=== PATIENT | male | born 1940 | race Caucasian/White ===

== ENCOUNTER 2021-03-24 10:31 | Outpatient (REF) | payer MEDICARE, SELFPAY ==
--- NOTE | ~2021-03-24 | US_ITS ---
EXAMINATION: US RETROPERITONEAL LIMITED (RENAL ONLY) CLINICAL INFORMATION: Hematuria. COMPARISON: None TECHNIQUE: Real-time imaging of the kidneys. FINDINGS: RIGHT KIDNEY: 10.7 x 5.8 x 4.7 cm (SAG x AP x TRV). The kidney is normal in size, contour, and echogenicity. Renal cortical thickness is normal. No calculi. No hydronephrosis. A ill-defined hypoechoic avascular lesion off the inferior right lower pole, measuring approximately 2.2 cm. LEFT KIDNEY: 13.0 x 4.5 x 4.9 cm (SAG x AP x TRV). The kidney is normal in size, contour, and echogenicity. Renal cortical thickness is normal. No hydronephrosis. Benign-appearing renal cysts measuring up to 4.3 cm, no imaging follow-up recommended. Nonobstructing 3 mm left renal stone. US/US renal BI IMPRESSION: A ill-defined hypoechoic avascular lesion off the inferior right lower pole, measuring approximately 2.2 cm favored to be artifactual however recommend contrast-enhanced CT abdomen to ensure this does not reflect a discrete renal lesion. Nonobstructing 3 mm left renal stone. Partially imaged liver appears echogenic suggestive of hepatic steatosis or underlying liver disease. This could be further characterized with a dedicated right upper quadrant ultrasound if clinically indicated.
== END 2021-03-24 10:32 | disposition home or self-care (01) ==
LOC: HO.US 10:31
PROVIDERS: Visit Provider Internal Medicine Nephrology
DX: R31.9 Hematuria, unspecified (principal)
CPT/HCPCS: 76775

== ENCOUNTER 2025-02-11 09:00 | Outpatient (AMB) | payer MEDICARE, SELFPAY ==
--- NOTE | 2025-02-11 09:04 | A.OFFVIS_ITS ---
Intake Visit Reasons: 6 month f/u Accompanied by: [employer] Allergies aspirin Allergy (Unknown, Verified 02/11/25 09:08) Unknown Medication List - Last Reconciled 02/11/25 by Veronica Ruby CNP atorvastatin 40 mg PO DAILY bumetanide 2 mg PO BID carbidopa-levodopa 25-100 mg (Sinemet) 2 tabs PO TID 90 days citalopram 20 mg PO DAILY cyclobenzaprine 5 mg PO BEDTIME finasteride 5 mg PO DAILY gabapentin 600 mg PO TID hydralazine 50 mg PO TID magnesium oxide 400 mg PO DAILY metoprolol succinate ER 50 mg PO DAILY mirtazapine 45 mg PO BEDTIME pantoprazole 40 mg PO QAM potassium chloride ER 20 mEq PO DAILY semaglutide (Ozempic) 1 mg subcut QWEEK HPI Comments Details: 84-year-old man with DM, HTN, arthritis, gout, depression, neuropathy, and parkinsonism. He was doing okay. He had [employer] for 29 hours/week. Tremors were okay with medication. No functional impairment. No difficulty eating, drinking, or swallowing. He was using walker most of the time. He had a fall in 11/2024 in parking lot and was seen at [facility], no injuries reported. Sleep was okay. [facility] Medical History (Updated 02/11/25 @ 09:08 by Veronica Ruby CNP) Gout Depression GERD (gastroesophageal reflux disease) Arthritis Hyperlipidemia Hypertension Diabetes Mild cognitive impairment Peripheral neuropathy Multifactorial gait disorder Parkinsonism Review of Systems Const Denies chills, Denies daytime sleepiness, Denies difficulty sleeping, Denies fatigue, Denies fever(s), Denies frequent falls, Denies headache(s), Denies increased appetite, Denies poor appetite, Denies snoring, Denies weakness, Denies weight gain and Denies weight loss Eyes Denies loss of vision ENT Denies vertigo, Denies dizziness and Denies headache(s) Card Denies chest pain at rest, Denies chest pain with activity, Denies syncope, Denies leg edema and Denies palpitations Resp Denies snoring GI Denies constipation, Denies heartburn, Denies diarrhea and Denies nausea Denies urinary frequency, Denies urinary incontinence and Denies urinary urgency Musc Reports abnormal gait (balance difficulty), Denies numbness and Denies tingling Skin/Breast Denies dry skin and Denies rash Neuro Reports abnormal gait (balance difficulty), Denies vertigo, Denies dizziness, Denies syncope, Denies frequent falls, Denies headache(s), Reports lack of coordination, Denies loss of vision, Reports memory loss, Denies numbness, Denies restless legs, Denies seizure-like activity, Denies tingling, Denies paresthesias, Reports tremor(s) and Denies weakness Psych Denies anxiety, Denies depression, Denies auditory hallucinations, Reports memory loss, Denies visual hallucinations and Denies suicidal ideation Endo Denies fatigue and Denies palpitations Physical Exam Const Other: General Appearance:? normal, in no acute distress. Skin:? no rashes, no significant birthmarks. Heart:? S1, S2 normal, no murmurs. Lungs:? clear anteriorly and posteriorly. Extremities:? no edema. Psych:? alert, oriented, cognitive function intact, cooperative with exam. Neuro Other: Mental Status:?Normal attention, orientation, and affect.? Cranial Nerves:?Pupils are equal, round and reactive to light. External occular muscles are intact. Visual villa are full. Face is symmetrical. Facial sensations are normal. Tongue is midline. Palate elevates symmetrically. S houlder shrugging is normal. Hearing to bedside conversation is normal. Sensory Exam:?....? Coordination:?No ataxia,?no titubation.? Gait Exam: Walking with walker. Cerebellar Signs:?[id number] with mild tremor. Extrapyramidal System:?No tremor, rigidity with normal facial expressions.? Pronator Drift:?Not present.? Involuntary Movements:?Mild hand tremor, R > L, and head tremor. Speech:?Normal.? Results Reviewed Results Reviewed: NCV/EMG LE 01/09/17 Bilateral chronic lower lumbar radiculopathy. 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 MRI brain WO at [facility] in Nov 2016: mild diffuse atrophy and mild MVD Assessment & Plan Assessment & Plan (1) Parkinsonism: Code(s): G20 - Parkinson's disease Category: Medical Qualifiers: Parkinsonism type: unspecified Qualified Code(s): G20.C - Parkinsonism, unspecified Plan: Continue carbidopa-levodopa 25-100mg 2 tablets three times a day (7am, 11am, 3pm). Continue to use walker. Follow up in 6 months or sooner as needed. (2) Peripheral neuropathy: Code(s): G62.9 - Polyneuropathy, unspecified Category: Medical Qualifiers: Peripheral neuropathy type: polyneuropathy, unspecified Qualified Code(s): G62.9 - Polyneuropathy, unspecified Plan . Medications: Refilled carbidopa-levodopa 25-100 mg (Sinemet) at 7am, 11am, and 3pm 2 tabs PO TID 540 tabs 1RF 90 days Coding Level of Care Code Est Pt Level 4 (85856) Diagnoses Parkinsonism, unspecified Parkinsonism type G20.C Parkinsonism type: unspecified Peripheral polyneuropathy G62.9 Peripheral neuropathy type: polyneuropathy, unspecified
--- OUTSIDE RECORDS SUMMARY | 2025-02-11 18:41 | XMS_ITS | Data Portability ---
Author Organization [facility] [employer] Address [address] [place] [address] Assessment Encounter Date Assessment Date Assessment LastModified by Organization Details LastModified Time 04/26/2022 04/26/2022 Participated in a shared telephonic visit with patient with 24 hours of fever and URI symptoms. Tested positive today for COVID. Renal function is WNL. On Lipitor and willing to hold. Took it this AM so will start Paxlovid dose pack in AM. He will take Tylenol for fever and body aches. [email or web address] Not available 04/26/2022 15:49:40 Plan of Treatment Reminders Order Date Submit Date Provider Last Modified By Organization Details Last Modified Time Details Appointments None recorded. Lab None recorded. Referral None recorded. Procedures None recorded. Surgeries None recorded. Imaging None recorded. Medication Orders Paxlovid 300 mg (150 mg x 2)-100 mg tablets in a dose pack 2022 023 [facility] #[id number], [address] [place], [address], 3 15:47:43 Paxlovid 150 mg-100 mg tablets in a dose pack (Moderate Renal Dose) 2022 023 [facility] #[id number], [address] [place], [address], 3 14:45:41 Patient TargetsNo targets recorded. Patient InstructionsNo instructions recorded. Reason for Referral None Reported. Medical Equipment None Reported. Allergies Allergen ID Allergen Name Allergen Category Reaction Reaction Severity Criticality Documentation Date Start Date Code Code System Note Provider Name and Address Organization Details Recorded Time 6899 aspirin medicatio n Not available Not available Not available 01/23/2024 1191 RxNorm Not Available [facility] - production 10/29/202 4 03:33:21 Medications Name Sig Start Date Stop Date Status Note LastModified by Organization Details LastModified Time atorvastatin 40 mg tablet TOME KHADIJAH TABLETA TODOS LOS D active Not Available Not Available No t Available acetaminophe n 325 mg tablet TAKE 2 CAPSULES BY MOUTH EVERY 6 HOURS NEEDED (PAIN). active Not Available Not Available No t Available gabapentin 600 mg tablet TOME KHADIJAH TABLETA WANDER VECES AL D A active Not Available Not Available No t Available bumetanide 2 mg tablet TOME KHADIJAH TABLETA DOS VECES AL D A active Not Available Not Available No t Available metoprolol succinate ER 50 mg tablet,exten ded release 24 hr TOME KHADIJAH TABLETA TODOS LOS D active Not Available Not Available No t Available senna 8.6 mg tablet TAKE 1 TABLET BY MOUTH DAILY NEEDED active Not Available Not Available No t Available citalopram 20 mg tablet TOME KHADIJAH TABLETA TODOS LOS D active Not Available Not Available No t Available magnesium oxide 400 mg (241.3 mg magnesium) tablet TOME KHADIJAH TABLETA TODOS LOS D active Not Available Not Available No t Available terazosin 2 mg capsule TOME KHADIJAH C PSULA TODOS LOS D AL ACOSTARSE active Not Available Not Available No t Available meclizine 25 mg tablet TOME KHADIJAH TABLETA WANDER VECES AL D A CUANDO SEA NECESARIO PARA EL MAREO active Not Available Not Available No t Available amlodipine 10 mg tablet TOME KHADIJAH TABLETA TODOS LOS D active Not Available Not Available No t Available pantoprazole 40 mg tablet,delay ed release TOME KHADIJAH TABLETA TODOS LOS D active Not Available Not Available No t Available calcitriol 0.5 mcg capsule TAKE 2 CAPSULES ONCE A WEEK ON MONDAYS active Not Available Not Available N ot Available docusate sodium 100 mg capsule TOME KHADIJAH C PSULA DOS VECES AL D A CUANDO SEA NECESARIO PARA EL ESTRE IMIENTO active Not Available Not Available No t Available mirtazapine 45 mg tablet TOME KHADIJAH TABLETA TODOS LOS D AL ACOSTARSE active Not Available Not Available No t Available hydralazine 50 mg tablet TOME KHADIJAH TABLETA WANDER VECES AL D A active Not Available Not Available No t Available alcohol swabs USE 4 TIMES A DAY BEFORE INJECTING INSULIN active Not Available Not Available No t Available ergocalcifer ol (vitamin D2) 1,250 mcg (50,000 unit) capsule TOME 1 C PSULA POR V A ORAL ONCE WEEKLY active Not Available Not Available No t Available albuterol sulfate HFA 90 mcg/actuatio n aerosol inhaler INHALE 2 PUFFS INTO THE LUNGS EVERY 6 HOURS NEEDED FOR WHEEZING OR SHORTNESS OF BREATH active Not Available Not Available No t Available carbidopa 25 mg-levodopa 100 mg tablet TOME DOS TABLETAS POR V A ORAL WANDER VECES AL D A active Not Available Not Available No t Available loratadine 10 mg tablet TOME KHADIJAH TABLETA TODOS LOS D active Not Available Not Available No t Available Murine Ear 6.5 % drops PLEASE SEE ATTACHED FOR DETAILED DIRECTIONS active Not Available Not Available N ot Available amoxicillin 875 mg-potassium clavulanate 125 mg tablet TOME KHADIJAH TABLETA DOS VECES AL D A POR 5 D active Not Available Not Available No t Available neomycin-abigail ymyxin-hydro diane 3.5 mg-10,000 unit/mL-1 % ear drops,susp PLACE 5 DROPS IN RIGHT EAR 3 TIMES DAILY X10 DAYS. TILT HEAD SO TREATED EAR POINTS TOWARD CEILING. active Not Available Not Available No t Available Novolog FlexPen U-100 Insulin aspart 100 unit/mL (3 mL) subcutaneous PLEASE SEE ATTACHED FOR DETAILED DIRECTIONS active Not Available Not Available N ot Available BD Ultra-Fine Mini Pen Needle 31 gauge x 3/16 USE TO ADMINISTER INSULIN 4 TIMES DAILY active Not Available Not Available Not Available FreeStyle Lite Strips USE TO TEST BLOOD SUGAR 4 TIMES DAILY active Not Available Not Available No t Available Lantus Solostar U-100 Insulin 100 unit/mL (3 mL) subcutaneous pen INJECT 40 UNITS INTO THE SKIN AT BEDTIME. active Not Available Not Available No t Available potassium chloride ER 20 mEq tablet,exten ded release TOME KHADIJAH TABLETA TODOS LOS D active Not Available Not Available No t Available Trulicity 1.5 mg/0.5 mL subcutaneous pen injector INJECT 1.5 MG INTO THE SKIN EVERY 7 DAYS active Not Available Not Available No t Available FreeStyle Niya 2 Sensor kit APPLY 1 DEVICE EVERY 14 DAYS. active Not Available Not Available No t Available Paxlovid 300 mg (150 mg x 2)-100 mg tablets in a dose pack TOME WANDER TABLETAS POR VIA ORAL DOS VECES AL MESFIN POR 5 HARO active Not Available Not Available No t Available Paxlovid 150 mg-100 mg tablets in a dose pack (Moderate Renal Dose) TOME DOS TABLETAS POR V A ORAL DOS VECES AL D A POR 5 D active Not Available Not Available No t Available Vitals Date Recorded Heart rate Respiratory rate Body weight Oxygen saturation Oxygen saturation in Arterial blood by Pulse oximetry Body temperature Systolic And Diastolic Provider Name and Address Organization Details Last Updated DateTime 3 64 /min 16 /min 762546. 856 g 95 % 95 % 100 [degF] 104/70 mm[Hg] Not Available [facility] - production 3 15:45:08 Social History None recorded. Functional Status None recorded. Mental Status None recorded. Family History Nothing Reported. Medical History No medical history recorded. Past Encounters Encounter ID Performer Location Encounter Start Date Encounter Closed Date Diagnosis/Indication Diagnosis SNOMED-CT Code Diagnosis ICD10 Code Diagnosis IMO Codes Diagnosis Note [id number] Muna John MD [facility] [address] [place] [address] [phone] 04/26/2022 15:44:51 04/28/2022 11:25:29 COVID-19 716697968 U07.1 Acute COVID-19 [id number] 8 U07.1 Health Concerns Section Related Observation LastModified by Organization Detai ls LastModified Time None Recorded Concern Status LastModified by Organization Details LastModified Time None Recorded Advance Directives Directive None Recorded Payers Insurance Date Sequence Insurance Name Policy Number Policy Ducnan Covered Member ID Duncan Member ID Guarantor Name 05/21/2023 1 [facility] - DOS PRIOR TO 2022 - DUAL ELIGIBLE (MEDICARE REPLACEMENT/AD VANTAGE - HMO) Ruben Ellison [id number] Ruben Ellison 05/21/2023 1 [facility] - DOS ON OR AFTER 2022 - DUAL ELIGIBLE - [employer]DC OPTIONS AND ONE CARE (MEDICARE REPLACEMENT/AD VANTAGE - HMO) Ruben Ellison [id number] Ruben Ellison Notes Date Note Type Note Provider Name and Address Organization Details Recorded Time 04/26/2022 text/html [facility] Nursing Assessment: Chief Complaints: URI PMH: CHF, Hypertension, Diabetes, Other Allergies: Aspirin Comments: PMH CAD/ CKD Member today to have COVID via home test today . Dry cough/ Fever 101.3, watery eyes. Member has sob at baseline. Member is on a diuretic for CHF. no other symptoms [facility] wanted assessment for silverio Byrd MD [address] [facility],[address], [place], [address], [employer] 04/27/2022 14:45:59
== END 2025-02-11 09:17 | disposition home or self-care (01) ==
LOC: HO.HSM 09:01
PROVIDERS: PCP Internal Medicine; Visit Provider Registered Nurse
DX: G20.C Parkinsonism, unspecified (principal); G62.9 Polyneuropathy, unspecified
CPT/HCPCS: 99214

== ENCOUNTER → 2025-02-11 09:00 | Outpatient (BNVA) | payer OTHER, SELFPAY | PROVIDERS: PCP Internal Medicine; Visit Provider Registered Nurse | DX: G20.C Parkinsonism, unspecified (principal); G62.9 Polyneuropathy, unspecified; Z79.899 Other long term (current) drug therapy | CPT/HCPCS: 99212 ==